=== PATIENT | male | born 1955 | race Two or more races ===

== ENCOUNTER 2020-06-01 15:50 | Emergency (ER) | payer OTHER ==
[~2020-06-01] VITALS: Ht 172.7 cm; Wt 115.7 kg
--- NOTE | 2020-06-01 15:56 | NUR ---
DR MARROQUIN AT BEDSIDE
--- NOTE | 2020-06-01 15:56 | NUR ---
[id number], R WRIST/FA PAIN S/P MECHANICAL FALL OFF HIS TRUCK , TO ER BED 3, HOOKED TO MONITOR, CHANGED TO HOSP GOWN, WARM BLANKET PROVIDED, PATIENT AAO x 4, AWAITING MD POTTS.
[2020-06-01] MEDS ORDERED: FENTANYL PF 100MCG/2ML AMPUL IM ONE (16:00)
--- NOTE | 2020-06-01 16:00 | NUR ---
Meaghan gabriel in [facility] - 06/01/20 at [address] MARROQUIN AT BEDSIDE
[2020-06-01] MEDS ORDERED: FENTANYL PF 100MCG/2ML AMPUL ONE (16:04)
--- NOTE | 2020-06-01 16:10 | NUR ---
FENTANYL IM GIVEN ORDERED, LABS DRAWN AND STARTED G18 LAC PIV
--- NOTE | 2020-06-01 16:14 | NUR ---
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
--- NOTE | 2020-06-01 17:12 | NUR ---
LOU THOMAS AT BEDSIDE FOR APPLICATION OF SUGARTONG AT [facility]
--- NOTE | 2020-06-01 18:14 | NUR ---
Patient discharged to home in stable condition. Written and verbal after care instructions given. Patient verbalizes understanding of instruction.
[2020-06-01 19:14] VITALS: BP 134/81
== END 2020-06-01 18:15 | disposition home or self-care (01) ==
LOC: ER 15:53
DX: S52.571A Other intraarticular fracture of lower end of right radius, initial encounter for closed fracture (principal); M19.90 Unspecified osteoarthritis, unspecified site; W18.39XA Other fall on same level, initial encounter; Y93.89 Activity, other specified; Y92.89 Other specified places as the place of occurrence of the external cause; Y99.8 Other external cause status
CPT/HCPCS: 29125; 73070; 73090; 73110; 73120; 96372; 99284; J3010; J7030